=== PATIENT | female | born 1935 | race Caucasian/White ===

== ENCOUNTER 2016-10-15 13:30 | Observation (INO) | payer MEDICARE, BC ==
[~2016-10-15 13:30] MED LIST: ATENOLOL25 MG; IMDUR60 MG; NITROQUICK0.4 MG; PLAVIX75 MG; PRAVACHOL40 MG
[2016-10-15 14:11] LABS: BASO % 0.4 % (0-2); EOS % 0.3 % (0-7); HCT-HEMATOCRIT 34.9 % (34.0-49.0); HGB-HEMOGLOBIN 11.1 gm/dl (12.0-15.5); IMMATURE GRANULOCYTES ABSOLUTE 0.01 tho/cmm (0-0.03); IMMATURE GRANULOCYTES PERCENT 0.1 % (0-0.3); LYMPH ABSOLUTE COUNT 1.5 tho/cmm (0.8-4.5); MCH (MEAN CORPUSCULAR HGB) 28.5 pg (28.0-32.0); MCHC MEAN CORPUSCULAR HGB CONC 31.8 % (32.0-36.0); MCV (MEAN CELL VOLUME) 89.7 fl (82.0-96.0); MONO % 6.6 % (0-12); MONOCYTE ABSOLUTE COUNT 0.5 tho/cmm (0.0-1.2); NEUTROPHIL ABSOLUTE COUNT 4.8 tho/cmm (1.6-8.0); NEUTROPHIL-AUTOMATED 4.8 tho/cmm (1.6-8.0); NEUTROPHILS % 70.6 % (40-80); PLATELET COUNT 247 tho/cmm (150-450); RED BLOOD COUNT 3.89 mil/cmm (4.00-5.20); RED CELL DISTRIBUTION WIDTH 14.7 % (12.4-16.4); WHITE BLOOD COUNT 6.9 tho/cmm (4.0-10.0)
[2016-10-15 14:15] LABS: PROTHROMBIN TIME 11.8 SECONDS (9.0-13.6)
[2016-10-15 14:29] LABS: ALB/GLOB RATIO 0.9 (0.8-2.0); ALBUMIN 3.7 g/dl (3.5-5.0); ALKALINE PHOSPHATASE 112 U/L (33-138); ALT/SGPT 14 U/L (12-78); ANION GAP 18 mmol/L (0-20); AST/SGOT 21 U/L (10-40); BILIRUBIN,TOTAL 0.5 mg/dl (0-1.5); BLOOD UREA NITROGEN 13 mg/dl (6-24); CALCIUM 8.9 mg/dl (8.5-10.5); CARBON DIOXIDE-VENOUS 24 mmol/L (22-32); CHLORIDE 106 mmol/l (96-110); CREATININE 1.23 mg/dl (0.50-1.10); GLUCOSE 126 mg/dL (70-110); POTASSIUM 4.6 mmol/L (3.7-5.1); SODIUM 143 mmol/L (135-145); eGFR VALUE FOR BLACK 47 mL/Min
[2016-10-15 14:31] LABS: ESR-ERYTHROCYTE SED RATE 36 mm/hr (0-30)
[2016-10-15] MEDS ORDERED: MECLIZINE HCL25 M3 PO (14:35)
[2016-10-15] MEDS ORDERED: NITROSTAT0.4 M1 PO (14:37)
[2016-10-15] MEDS ORDERED: PROAIR HFA8.5 GM INH (14:38)
[2016-10-15] MEDS ORDERED: ASPIRIN325 M3 PO (14:48)
[2016-10-15] MEDS ORDERED: MULTIPLE VITAM1 EAC3 PO (14:49)
[2016-10-16 07:04] LABS: ANION GAP 14 mmol/L (0-20); BLOOD UREA NITROGEN 14 mg/dl (6-24); CALCIUM 8.7 mg/dl (8.5-10.5); CARBON DIOXIDE-VENOUS 25 mmol/L (22-32); CHLORIDE 110 mmol/l (96-110); CHOLESTEROL 152 mg/dl (120-200); CREATININE 0.82 mg/dl (0.50-1.10); GLUCOSE 83 mg/dL (70-110); HDL CHOLESTEROL 45 mg/dl (40-60); LDL CHOLESTEROL 85 mg/dl (0-99); SODIUM 145 mmol/L (135-145); TRIGLYCERIDES 114 mg/dl (<149); VLDL 23 mg/dl (0-30); eGFR VALUE FOR BLACK 77 mL/Min
[2016-10-16] MEDS ORDERED: ASPIRIN325 M3 PO (13:48)
== END 2016-10-16 16:05 ==
LOC: EDMED 13:30 → EMR2 15:49 → 5EB 18:00
PROVIDERS: Emergency Medicine; Hospitalist; ADMIT Family Medicine
PROC: 05HC33Z Insertion of Infusion Device into Left Basilic Vein, Percutaneous Approach (ICD-10-PCS; principal; 2016-10-16)
DX: R53.1 Weakness (principal); I95.9 Hypotension, unspecified; G89.29 Other chronic pain; R07.89 Other chest pain; I71.2 Thoracic aortic aneurysm, without rupture; I25.10 Atherosclerotic heart disease of native coronary artery without angina pectoris; E78.5 Hyperlipidemia, unspecified; I12.9 Hypertensive chronic kidney disease with stage 1 through stage 4 chronic kidney disease, or unspecified chronic kidney disease; N18.2 Chronic kidney disease, stage 2 (mild); N17.9 Acute kidney failure, unspecified; J44.9 Chronic obstructive pulmonary disease, unspecified; J45.909 Unspecified asthma, uncomplicated; I65.23 Occlusion and stenosis of bilateral carotid arteries; R42 Dizziness and giddiness; Z79.82 Long term (current) use of aspirin; Z79.899 Other long term (current) drug therapy; Z88.0 Allergy status to penicillin; Z88.2 Allergy status to sulfonamides; Z88.5 Allergy status to narcotic agent; Z87.891 Personal history of nicotine dependence; Z90.49 Acquired absence of other specified parts of digestive tract; Z90.710 Acquired absence of both cervix and uterus; Z95.5 Presence of coronary angioplasty implant and graft; Z98.890 Other specified postprocedural states
CPT/HCPCS: C1751; C8929; G0378; G8978-GP-CJ; G8979-GP-CI; G8980-GP-CJ; G8987-GO-CI; G8988-GO-CH; G8989-GO-CI; J1650; J7030